=== PATIENT | female | born 1990 | race Hispanic/Latino ===

== ENCOUNTER 2016-12-07 12:47 | Outpatient (CLI) | payer MEDICAID ==
[2016-12-07 13:24] LABS: Hemoglobin 13.2 gm/dl (10.1-14.3); Mean Corpuscular HGB Conc 33 % (30-34); Mean Corpuscular Hemoglobin 31 pg (28-32); Mean Corpuscular Volume 93 fl (79-97); Platelet Count 230 K/mm3 (140-440); Red Blood Count 4.29 M/mm3 (3.65-5.03); Red Cell Distribution Width 12.4 % (13.2-15.2); White Blood Count 6.9 K/mm3 (4.5-11.0)
[2016-12-07 13:42] LABS: Alanine Aminotransferase 12 units/L (7-56); Albumin 4.4 g/dL (3.9-5); Albumin/Globulin Ratio 1.6 %; Alkaline Phosphatase 83 units/L (35-129); Anion Gap 19 mmol/L; Blood Urea Nitrogen 14 mg/dL (7-17); Calcium 9.2 mg/dL (8.4-10.2); Carbon Dioxide 24 mmol/L (22-30); Chloride 102.2 mmol/L (98-107); Glucose 93 mg/dL (65-100); Sodium 141 mmol/L (137-145); Total Protein 7.2 g/dL (6.3-8.2)
[2016-12-09 06:54] LABS: Vitamin D, 25-OH, Total 47 ng/mL (30-100)
== END 2016-12-07 12:48 | disposition home or self-care (01) ==
LOC: LAB 12:47
PROVIDERS: ATTEND Clinical Nurse Specialist Psychiatric/Mental Health
DX: F31.63 Bipolar disorder, current episode mixed, severe, without psychotic features (principal)
CPT/HCPCS: 36415; 80053; 80178; 82306; 84443; 85027

== ENCOUNTER 2017-01-23 15:10 | Emergency (ER) | payer MEDICAID ==
[2017-01-23] MEDS ORDERED: BENADRYL ONE (15:27)
[2017-01-23] MEDS ORDERED: HALDOL ONE (15:28)
[2017-01-23] MEDS ORDERED: ATIVAN ONE (15:28)
[2017-01-23] MEDS ORDERED: ATIVAN IM ONE (15:41)
[2017-01-23] MEDS ORDERED: BENADRYL IM ONE (15:42)
[2017-01-23] MEDS ORDERED: HALDOL IM ONE (15:43)
[2017-01-23 17:05] LABS: Basophils % (Auto) 0.4 % (0.0-1.8); Eosinophils % (Auto) 2.8 % (0.0-4.3); Hematocrit 41.2 % (30.3-42.9); Hemoglobin 13.8 gm/dl (10.1-14.3); Mean Corpuscular HGB Conc 34 % (30-34); Mean Corpuscular Hemoglobin 31 pg (28-32); Mean Corpuscular Volume 92 fl (79-97); Platelet Count 252 K/mm3 (140-440); Red Blood Count 4.47 M/mm3 (3.65-5.03); Red Cell Distribution Width 12.2 % (13.2-15.2)
--- NOTE | 2017-01-23 17:07 | Emergency Department Report ---
HPI - General Chief Complaint: Psych Time Seen by Provider: 01/23/17 16:17 - HPI HPI: This is a 26-year-old female presents to the emergency department via [employer] [employer] after the patient allegedly was making suicidal threats while at home. The patient denies this however and says that she was minding her business when the police kicked down her door, "told me I was a 1013and brought me to the hospital". The patient has a history of bipolar disorder admits to medication noncompliance with Ativan, Trileptal, lithium and a fourth medication. She says that she has not taken them in 4 days because "I did not feel like it." She does admit to history of suicidal ideations and attempts and previous cutting of herself. She lasted is about 3 months ago. When asked what caused her to want to harm herself she says "everything." When the patient got to the emergency department she was attempting to bite and hit ED staff. ED Past Medical Hx - Past Medical History Hx Hypertension: No Hx Congestive Heart Failure: No Hx Diabetes: No Hx Deep Vein Thrombosis: No Hx Renal Disease: No Hx Sickle Cell Disease: No Hx Seizures: No Hx Asthma: No Hx COPD: No Hx HIV: No - Social History Smoking Status: Current Every Day Smoker - Medications Home Medications: Home Medications Medication Instructions Recorded Confirmed Last Taken Type LORazepam [Ativan] 0.5 mg PO TID 01/23/17 01/23/17 Unknown History [place] Carbonate 300 mg PO BID 01/23/17 01/23/17 Unknown History traZODone [Desyrel] 100 mg PO DAILY 01/23/17 01/23/17 Unknown History ED Review of Systems ROS: Stated complaint: MH EVAL Other details as noted in HPI Comment: All other systems reviewed and negative Constitutional: denies: chills, fever Eyes: denies: eye pain, eye discharge, vision change ENT: denies: ear pain, throat pain Respiratory: denies: cough, shortness of breath, wheezing Cardiovascular: denies: chest pain, palpitations Gastrointestinal: denies: abdominal pain, nausea, diarrhea Genitourinary: denies: urgency, dysuria, discharge Musculoskeletal: denies: back pain, joint swelling, arthralgia Skin: denies: rash, lesions Neurological: denies: headache, weakness, paresthesias Psychiatric: depression. denies: auditory hallucinations, visual hallucinations Physical Exam - Physical Exam Physical Exam: GENERAL: The patient is well-developed well-nourished. HEENT: Normocephalic. Atraumatic. Extraocular motions are intact. Patient has moist mucous membranes. Pupils equal reactive to light bilaterally. NECK: Supple. Trachea is midline. CHEST/LUNGS: Clear to auscultation. There is no respiratory distress noted. HEART/CARDIOVASCULAR: Regular. There is no tachycardia. There is no gallop rub or murmur. ABDOMEN: Abdomen is soft, nontender. Patient has normal bowel sounds. There is no abdominal distention. SKIN: Skin is warm and dry. there are multiple abrasions to the bilateral forearms, some of which appear acute. NEURO: The patient is awake, alert, and oriented. The patient is cooperative. The patient has no focal neurologic deficits. The patient has normal speech. MUSCULOSKELETAL: There is no tenderness or deformity. There is no limitation range of motion. There is no evidence of acute injury. ED Medical Decision Making - Lab Data Result diagrams: 01/23/17 16:40 01/23/17 16:40 - Medical Decision Making 26-year-old female presents to the emergency department via PD. The story is inconsistent but the patient says she was minding her business and the police busted down her door. However there is some mention through the triage notes and what appears to be from the police that the patient had been making suicidal threats. She does present with some abrasions and/or self-inflicted wounds to the forearms, some of which appear acute, despite the fact that the patient says that they are at least 3 months old. She does currently have a depressed demeanor. However the patient presented very combative, trying to kick and bite and hit ED staff. She did get some chemical sedation from the prior ED attending but the patient was still awake and alert during my history and physical. Her vital signs stable throughout her ED course. There is no elevated blood alcohol level but the patient has polysubstance abuse with positive urine drug screen for methadone, amphetamine, benzodiazepam and marijuana. The patient does appear to be a candidate to be made a 1013 secondary to her alleged suicidal ideations, her visible self-harm and uncontrolled psychiatric behavior. The patient appears medically clear for psychiatric placement. Crisis therapist has seen the patient and will assist - Differential Diagnosis bipolar disorder, schizophrenia, schizoaffective, depression, polysubstance Critical Care Time: No Critical care attestation.: If time is entered above; I have spent that time in minutes in the direct care of this critically ill patient, excluding procedure time. ED Disposition Clinical Impression: Polysubstance abuse, Suicidal ideations Depression Qualifiers: Depression Type: unspecified Qualified Code(s): F32.9 - Major depressive disorder, single episode, unspecified Disposition: DC/TX-65 PSY HOSP/PSY UNIT Is pt being admited?: No Condition: Stable Referrals: PRIMARY CARE, [Primary Care Provider] - 3-5 Days Time of Disposition: 18:38
[2017-01-23 17:16] LABS: Anion Gap 17 mmol/L; Blood Urea Nitrogen 18 mg/dL (7-17); Calcium 9.4 mg/dL (8.4-10.2); Carbon Dioxide 25 mmol/L (22-30); Chloride 102.4 mmol/L (98-107); Glucose 80 mg/dL (65-100); Potassium 3.8 mmol/L (3.6-5.0); Sodium 141 mmol/L (137-145)
[2017-01-23 17:32] LABS: Urine Drugs of Abuse Note Disclamer
[2017-01-23 17:48] LABS: Bilirubin,Urine NEG (Negative); Blood,Urine NEG (Negative); Ketones,Urine NEG (Negative); Leukocyte Esterase,Urine SM (Negative); Mucus,Urine 3+ /HPF; Nitrite,Urine NEG (Negative)
[2017-01-24 22:45] VITALS: BP 125/78
== END 2017-01-25 00:17 ==
LOC: EEVIPCON 15:10 → ED 15:10
DX: F32.9 Major depressive disorder, single episode, unspecified (principal); F19.10 Other psychoactive substance abuse, uncomplicated; F17.200 Nicotine dependence, unspecified, uncomplicated
CPT/HCPCS: 36415; 80048; 80307; 81001; 84703; 85025; 96372; 99285; G0480; J1200; J1630; J2060; 80320

== ENCOUNTER 2018-05-14 10:50 | Emergency (ER) | payer MEDICAID ==
[2018-05-14 12:19] LABS: Bacteria,Urine 1+ /HPF (Negative); Bilirubin,Urine NEG (Negative); Blood,Urine NEG (Negative); Color,Urine Yellow (Yellow); Mucus,Urine FEW /HPF; Protein,Urine <15 mg/dL mg/dL (Negative); Urobilinogen,Urine < 2.0 mg/dL (<2.0)
[2018-05-14] MEDS ORDERED: TYLENOL PO ONE (13:04)
[2018-05-14 13:10] VITALS: BP 106/57
[2018-05-14 13:38] LABS: Basophils % (Auto) 0.1 % (0.0-1.8); Eosinophils # (Auto) 0.2 K/mm3 (0.0-0.4); Eosinophils % (Auto) 1.8 % (0.0-4.3); Hematocrit 36.8 % (30.3-42.9); Hemoglobin 12.9 gm/dl (10.1-14.3); Lymphocytes # (Auto) 2.1 K/mm3 (1.2-5.4); Lymphocytes % (Auto) 23.2 % (13.4-35.0); Mean Corpuscular HGB Conc 35 % (30-34); Mean Corpuscular Hemoglobin 32 pg (28-32); Mean Corpuscular Volume 91 fl (79-97); Monocytes # (Auto) 0.4 K/mm3 (0.0-0.8); Monocytes % (Auto) 4.9 % (0.0-7.3); Platelet Count 246 K/mm3 (140-440); Red Blood Count 4.06 M/mm3 (3.65-5.03)
[2018-05-14 14:05] LABS: BUN/Creatinine Ratio 14; Blood Urea Nitrogen 7 mg/dL (7-17); Calcium 9.3 mg/dL (8.4-10.2); Hemolysis Index 21
--- NOTE | 2018-05-14 14:35 | Emergency Department Report ---
ED HPI - General Chief complaint: Abdominal Pain Stated complaint: 9WKS /STOMACH PAIN Time Seen by Provider: 05/14/18 12:59 Source: patient Mode of arrival: Ambulatory Limitations: No Limitations - History of Present Illness Initial comments: This is a 28-year-old female nontoxic, well nourished in appearance, no acute signs of distress presents to the ED with c/o of pelvic pain x1 day. Patient denies any vaginal bleeding. Patient denies any upper abdominal. Patient denies any vaginal discharge or foul odor. Patient stated she is about 9 weeks . Patient denies any nausea, vomiting, chest pain, shortness of breathe, fever, chills, headache, stiff neck, numbness, tingling. Patient denies any urinary symptoms. Patient stated she does she an [employer] and had a normal US last week. MD Complaint: other (pelvic pain) -: days(s) (1) Location: pelvis Radiation: none Severity: mild Severity scale (0 -10): 3 Quality: cramping, aching Consistency: intermittent Improves with: none Worsens with: none Associated symptoms: denies: nausea/vomiting, vaginal bleeding, vaginal discharge, abdominal pain, dysuria, headache, vision changes, malaise, dysparuenia, rash, seizure, shortness of breath, syncope, weakness Vaginal bleeding: none :: Yes Number of weeks : 9 Pre- care: followed by OB - Related Data Home Medications Medication Instructions Recorded Confirmed Last Taken LORazepam [Ativan] 0.5 mg PO TID 01/23/17 01/23/17 Unknown [place] Carbonate 300 mg PO BID 01/23/17 01/23/17 Unknown traZODone [Desyrel] 100 mg PO DAILY 01/23/17 01/23/17 Unknown Allergies Allergy/AdvReac Type Severity Reaction Status Date / Time iodine Allergy Unknown Verified 05/14/18 11:13 hexachlorophene AdvReac Intermediate Unknown Verified 05/14/18 11:13 [From Septisol] latex AdvReac Intermediate Rash Verified 05/14/18 11:13 povidone-iodine AdvReac Intermediate Unknown Verified 05/14/18 11:13 [From Septisol] ED Review of Systems ROS: Stated complaint: 9WKS /STOMACH PAIN Other details as noted in HPI Constitutional: denies: chills, fever Eyes: denies: eye pain, eye discharge, vision change ENT: denies: ear pain, throat pain Respiratory: denies: cough, shortness of breath, wheezing Cardiovascular: denies: chest pain, palpitations Endocrine: no symptoms reported Gastrointestinal: other (pelvic pain). denies: abdominal pain, nausea, diarrhea Genitourinary: denies: urgency, dysuria, discharge Musculoskeletal: denies: back pain, joint swelling, arthralgia Skin: denies: rash, lesions Neurological: denies: headache, weakness, paresthesias Psychiatric: denies: anxiety, depression Hematological/Lymphatic: denies: easy bleeding, easy bruising ED Past Medical Hx - Past Medical History Hx Hypertension: No Hx Congestive Heart Failure: No Hx Diabetes: No Hx Deep Vein Thrombosis: No Hx Renal Disease: No Hx Sickle Cell Disease: No Hx Seizures: No Hx Asthma: No Hx COPD: No Hx HIV: No - Social History Smoking Status: Current Every Day Smoker Substance Use Type: None - Medications Home Medications: Home Medications Medication Instructions Recorded Confirmed Last Taken Type LORazepam [Ativan] 0.5 mg PO TID 01/23/17 01/23/17 Unknown History [place] Carbonate 300 mg PO BID 01/23/17 01/23/17 Unknown History traZODone [Desyrel] 100 mg PO DAILY 01/23/17 01/23/17 Unknown History ED Physical Exam - General Limitations: No Limitations General appearance: alert, in no apparent distress - Head Head exam: Present: atraumatic, normocephalic - Eye Eye exam: Present: normal appearance Pupils: Present: normal accommodation - ENT ENT exam: Present: normal exam, mucous membranes moist - Neck Neck exam: Present: normal inspection, full ROM. Absent: tenderness, meningismus - Respiratory Respiratory exam: Present: normal lung sounds bilaterally. Absent: respiratory distress, wheezes, rales, rhonchi, stridor, chest wall tenderness, accessory muscle use, decreased breath sounds, prolonged expiratory - Cardiovascular Cardiovascular Exam: Present: regular rate, normal rhythm, normal heart sounds. Absent: bradycardia, tachycardia, irregular rhythm, systolic murmur, diastolic murmur, rubs, gallop - GI/Abdominal GI/Abdominal exam: Present: soft, normal bowel sounds. Absent: distended, tenderness, guarding, rebound, rigid, diminished bowel sounds, hyperactive bowel sounds, hypoactive bowel sounds, mass, pulsatile mass - Expanded GI/Abdominal Exam Expanded GI/Abdominal exam: Absent: psoas sign, Verma's sign, Rovsing's sign, tenderness at Mcburney's Point, ascites - Rectal Rectal exam: Present: deferred - Extremities Exam Extremities exam: Present: normal inspection, full ROM - Back Exam Back exam: Present: normal inspection, full ROM. Absent: tenderness, CVA tenderness (R), CVA tenderness (L) - Neurological Exam Neurological exam: Present: alert, oriented X3 - Psychiatric Psychiatric exam: Present: normal affect, normal mood - Skin Skin exam: Present: warm, dry, intact, normal color. Absent: rash ED Course Vital Signs 05/14/18 05/14/18 05/14/18 11:13 12:55 13:10 Temperature 98.8 F Pulse Rate 67 68 Respiratory 16 17 16 Rate Blood Pressure 99/47 Blood Pressure 106/57 [Right] O2 Sat by Pulse 99 98 Oximetry - Reevaluation(s) Reevaluation #1: 05/14/18 14:32 Patient is speaking in full sentences wtih no signs of distress noted. ED Medical Decision Making - Lab Data Result diagrams: 05/14/18 13:20 05/14/18 13:20 - Medical Decision Making This is a 28-year-old female presents with pelvic pain during . Patient is stable and was examined by me. Normal abdominal exam. US OB ordered but patient left against medical advice. Patient was educated and instructed of my concerned related to ectopic and other acute abdomen. UA obtained. Quantative serum test obtained. Patient signed AMA form. At time of signing AMA form, the patient does not seem toxic or ill in appearance. No acute signs of distress noted. No further questions noted by the patient. Critical care attestation.: If time is entered above; I have spent that time in minutes in the direct care of this critically ill patient, excluding procedure time. ED Disposition Clinical Impression: Pelvic pain during Disposition: DC-07 LEFT AGAINST MED ADVICE Is pt being admited?: No Condition: Stable Instructions: Abdominal Pain (ED) Referrals: PRIMARY CARE, [Primary Care Provider] - 3-5 Days
== END 2018-05-14 14:10 | disposition left against medical advice (07) ==
LOC: ED 10:50
DX: O26.891 Other specified pregnancy related conditions, first trimester (principal); R10.2 Pelvic and perineal pain; O99.331 Smoking (tobacco) complicating pregnancy, first trimester; Z3A.09 9 weeks gestation of pregnancy; Z91.018 Allergy to other foods; Z91.040 Latex allergy status
CPT/HCPCS: 36415; 80048; 81001; 84702; 85025; 99283

== ENCOUNTER 2018-09-11 10:15 | Outpatient (CLI) | payer MEDICAID ==
[2018-09-11 10:44] VITALS: BP 99/55
--- NOTE | 2018-09-11 13:28 | Ultrasound Report ---
ULTRASOUND OB LIMITED History: well being Technique: Transabdominal ultrasound with Doppler interrogation. Gestation: Single Position: Cephalic Amniotic Fluid: Normal WES = 13.1 cm Heart Rate: 156 BPM
== END 2018-09-11 12:10 | disposition home or self-care (01) ==
LOC: TRG 10:15
PROVIDERS: ATTEND Obstetrics & Gynecology
DX: O47.02 False labor before 37 completed weeks of gestation, second trimester (principal); Z3A.26 26 weeks gestation of pregnancy
CPT/HCPCS: 59025; 76815

== ENCOUNTER 2018-10-11 08:09 | Outpatient (CLI) | payer MEDICAID ==
[2018-10-11] MEDS ORDERED: LACTATED RINGERS 1,000 ML IV ONE (08:38)
[2018-10-11 08:53] VITALS: BP 95/53
[2018-10-11 09:05] LABS: Bilirubin,Urine NEG (Negative); Blood,Urine SM (Negative); Color,Urine Straw (Yellow); Protein,Urine <15 mg/dL mg/dL (Negative); Urobilinogen,Urine < 2.0 mg/dL (<2.0); WBC,Urine < 1.0 /HPF (0.0-6.0)
== END 2018-10-11 09:41 | disposition home or self-care (01) ==
LOC: TRG 08:09
PROVIDERS: ATTEND Obstetrics & Gynecology
DX: O47.03 False labor before 37 completed weeks of gestation, third trimester (principal); O99.513 Diseases of the respiratory system complicating pregnancy, third trimester; J45.909 Unspecified asthma, uncomplicated; Z3A.30 30 weeks gestation of pregnancy
CPT/HCPCS: 36415; 59025; 81001; 82731

== ENCOUNTER 2018-12-17 13:04 | Inpatient (IN) | payer MEDICAID ==
[2018-12-17] MEDS ORDERED: MINERAL OIL PO PRN (14:19)
[2018-12-17] MEDS ORDERED: SUBLIMAZE IV PRN (14:19)
[2018-12-17] MEDS ORDERED: BRETHINE IVP PRN (14:19)
[2018-12-17] MEDS ORDERED: BRETHINE SUB-Q PRN (14:19)
[2018-12-17] MEDS ORDERED: PITOCin/NS 30 UNIT/500ML 30 UNITS/500 ML BAG IV SCH (15:00)
[2018-12-17] MEDS ORDERED: XYLOCAINE 2% INFILTRATI ONE (15:00)
[2018-12-17] MEDS ORDERED: LACTATED RINGERS 1,000 ML IV SCH (15:00)
[2018-12-17] MEDS ORDERED: PITOCin/NS 20 UNIT/1000ML DRIP 20 UNITS/1,000 ML BAG IV SCH (15:00)
[2018-12-17 15:46] LABS: Hematocrit 30.1 % (30.3-42.9); Hemoglobin 10.2 gm/dl (10.1-14.3); Mean Corpuscular HGB Conc 34 % (30-34); Mean Corpuscular Volume 89 fl (79-97); Platelet Count 270 K/mm3 (140-440); Red Blood Count 3.38 M/mm3 (3.65-5.03); Red Cell Distribution Width 14.8 % (13.2-15.2)
[2018-12-17] MEDS ORDERED: NARCAN 2 MG/2 ML IV PRN (17:21)
--- NOTE | 2018-12-17 17:54 | History and Physical Report ---
History of Present Illness Date of examination: 12/17/18 Date of admission: 12/17/18 15:21 Chief complaint: MY WATER BROKE History of present illness: Pt presents with SROM and confirmed by charge nurse in triage on exam. Fluid noted to be clear and not odor and SROM at 12noon. Pt admitted for iol. EDC Confirmation: 12/18/2018 Gestational Age: 8 weeks Past History : 4 Term Births: 3 Premature Births: 0 Living Children: 3 Para: 3 Mult. Births: 0 Prev : 0 Aborta: 0 Elect. Ab: 0 Spont. Ab: 0 Ectopics: 0 # 1 Delivery date: 04/24/2011 Weeks Gestation: 41 Delivery type: Vaginal Anesthesia type: epidural Delivery location: [facility] Sex: female weight: 8.75 Comments: none # 2 Delivery date: 02/24/2013 Weeks Gestation: 39 6/7 Delivery type: Vaginal Hours of labor: 9 Anesthesia type: epidural Delivery location: [facility] Infant Sex: male weight: 3515 Comments: none # 3 Delivery date: 2014 Weeks Gestation: term Delivery type: Anesthesia type: epidural Delivery location: [facility] Sex: Male weight: 7-8 Comments: IOL Past Medical History: Reviewed history from 09/10/2010 and no changes required: Asthma Bipolar Disease no meds Past Surgical History: Reviewed history from 09/10/2010 and no changes required: Tonsillectomy Past Medical History Abnormal PAP: negative BLAINE Exposure: negative Infertility: negative Uterine Anomaly: negative Uterine Surgery (not C/S): negative Other Gynecologic Problems: negative Social Hx: Patient is Smoking History: Patient has never smoked. Infection History Hx of STD: none HIV Risk Eval: low risk Hepatitis B Risk Eval: low risk Personal hx. of genital herpes: no Partner hx. of genital herpes: no Rash, Viral, or Febrile illness since last LMP? no Varicella/Chicken Pox Status: Unknown TB Risk: no Genetic History Congenital Heart Defect: Mom: no Dad: no Martha Disease: Mom: no Dad: no Thalassemia Mom: no Dad: no Neural Tube Defect Mom: no Dad: no Down's Syndrome Mom: no Dad: no Weston-Sachs Mom: no Dad: no Sickle Cell Disease/Trait Mom: no Dad: no Hemophilia Mom: no Dad: no Muscular Dystrophy Mom: no Dad: no Cystic Fibrosis Mom: no Dad: no Castro Chorea Mom: no Dad: no Mental Retardation Mom: no Dad: no Fragile X Mom: no Dad: no Other Genetic/Chromosomal Disorder Mom: no Dad: no Child w/other defect Mom: no Dad: no Enviromental Exposures Xray Exposure: no Medication, drug, or alcohol use since LMP: no Chemical/Other Exposure: no Exposure to Cat Liter: no Hx of Parvovirus (Fifth Disease): no Occupational Exposure to Children: none Active Medications (reviewed today): ZOFRAN ODT 8 MG ORAL TABLET DISINTEGRATING (ONDANSETRON) 1 po q12hrs prn PEPCID 40 MG ORAL TABLET (FAMOTIDINE) 1/2 tab BID ZANTAC 150 MG ORAL TABLET (RANITIDINE HCL) 1 tab PO qdaily PROMETHAZINE HCL 12.5 MG ORAL TABLET (PROMETHAZINE HCL) 1 po q 6 hrs prn nausea FERROUS SULFATE 325 (65 Fe) MG ORAL TABLET (FERROUS SULFATE) 1 po qd PROMETHAZINE HCL 25 MG ORAL TABLET (PROMETHAZINE HCL) 1 tab po q6hrs prn ONDANSETRON 8 MG ORAL TABLET DISINTEGRATING (ONDANSETRON) 1 po q12hrs prn Current Allergies (reviewed today): * IODINE (Critical) * CEFCIL (Critical) Past History Past Medical History: other (see hpi) Past Surgical History: other (see hpi) [employer] History: other (see hpi) Family/Genetic History: other (see hpi) Social history: no significant social history, (currently separtated from ), other (see hpi) - Obstetrical History Expected Date of Delivery: 12/18/18 Actual Gestation: 39 Week(s) 6 Day(s) : 4 Para: 3 Number of Living Children: 3 Medications and Allergies Allergies Allergy/AdvReac Type Severity Reaction Status Date / Time iodine Allergy Unknown Verified 09/11/18 10:48 hexachlorophene AdvReac Intermediate Unknown Verified 09/11/18 10:48 [From Septisol] latex AdvReac Intermediate Rash Verified 09/11/18 10:48 povidone-iodine AdvReac Intermediate Unknown Verified 09/11/18 10:48 [From Septisol] Home Medications Medication Instructions Recorded Confirmed Last Taken Type Ipratropium [place] 1 inhalation INHALATION TID MDD prn 09/11/18 12/17/18 09/10/18 07:00 History Active Meds: Active Medications Ephedrine Sulfate (Ephedrine Sulfate) 10 mg IV Q2M PRN PRN Reason: Hypotension Ephedrine Sulfate (Ephedrine Sulfate) 10 mg IV Q2M PRN PRN Reason: Hypotension Fentanyl (Sublimaze) 100 mcg IV Q2H PRN PRN Reason: Labor Pain Last Admin: 12/17/18 16:11 Dose: 100 mcg Documented by: Oxytocin/Sodium Chloride (Pitocin/Ns 20 Unit/1000ml Drip) 20 units in 1,000 mls @ 125 mls/hr IV DIRECT MAY Oxytocin/Sodium Chloride (Pitocin/Ns 30 Unit/500ml) 30 units in 500 mls @ 4 mls/min IV TITR MAY; Protocol Last Admin: 12/17/18 16:05 Dose: 4 ml/hr, 0.07 mls/min Documented by: Lactated Ringer's (Lactated Ringers) 1,000 mls @ 125 mls/hr IV DIRECT MAY Last Admin: 12/17/18 16:04 Dose: 125 mls/hr Documented by: Fentanyl/Bupivacaine/Sodium Chlor (Fentanyl-Bupiv 2 Mcg/Ml-0.125%) 200 mcg in 1 00 mls @ 12 mls/hr EPIDURAL TITR MAY; Protocol Mineral Oil (Mineral Oil) 30 ml PO QHS PRN PRN Reason: Constipation Naloxone HCl (Narcan 2 Mg/2 Ml) 0.2 mg IV Q5M PRN PRN Reason: Respiratory sedation Terbutaline Sulfate (Brethine) 0.25 mg SUB-Q ONCE PRN PRN Reason: Hyperstimulation/Hypertonicity Terbutaline Sulfate (Brethine) 0.25 mg IVP ONCE PRN PRN Reason: Hyperstimulation/Hypertonicity - Vital Signs Vital signs: Vital Signs Pulse Pulse Ox 92 H 96 12/17/18 13:27 12/17/18 13:27 Temp Pulse Resp BP Pulse Ox 97.9 F 76 16 99/59 98 12/17/18 15:24 12/17/18 17:47 12/17/18 15:24 12/17/18 17:47 12/17/18 17:46 Results Result Diagrams: 12/17/18 15:20 Abnormal lab results 12/17/18 Range/Units 15:20 WBC 15.0 H (4.5-11.0) K/mm3 RBC 3.38 L (3.65-5.03) M/mm3 Hct 30.1 L (30.3-42.9) % All other labs normal. Assessment and Plan - Patient Problems (1) 39 weeks gestation of Current Visit: Yes Status: Acute (2) SROM (spontaneous rupture of membranes) Current Visit: Yes Status: Acute Plan to address problem: -pitocin started -anticipate -epidural when and if desired
[2018-12-17] MEDS ORDERED: fentaNYL-BUPIV 2 MCG/ML-0.125% 200 MCG/100 ML BAG EPIDURAL SCH (18:00)
[2018-12-17] MEDS ORDERED: ZOFRAN IV PRN (18:53)
[2018-12-17] MEDS ORDERED: LANSINOH TP PRN (21:25)
[2018-12-17] MEDS ORDERED: BENADRYL PO PRN (21:25)
[2018-12-17] MEDS ORDERED: DULCOLAX PR PRN (21:25)
[2018-12-17] MEDS ORDERED: MILK OF MAGNESIA PO PRN (21:25)
[2018-12-17] MEDS ORDERED: TUCKS PAD TP PRN (21:25)
--- NOTE | 2018-12-17 21:32 | Procedure Note ---
OB Delivery Note - Delivery Date of Delivery: 12/17/18 Surgeon: FRENCH MORALES Estimated blood loss: 100cc - Vaginal Delivery presentation: vertex Delivery position: OA Intrapartum events: none Delivery induction: oxytocin Delivery augmentation: pitocin Delivery monitor: external FHT, external uterine Route of delivery: Delivery placenta: spontaneous (intact) Delivery cord: nuchal cord (times one easily reduced), 3 umbilical vessels Episiotomy: none Delivery laceration: 1st degree (periurethral hemostatic) Anesthesia: epidural Delivery comments: Delivery as above. With 1-2 pushes pt delivered a live born female infant. Nuchat cord times one noted and reduced. Ant shoulder and rest of delivered without any complications. There was no shoulder dystocia. Infant was placed on maternal abdomen. Cord palpated for pulsations and once completed was clamped x 2 and cut x1 by FOB. Cord blood was collected. Placenta delivered spontaneously intact. Mother and stable in LDR. - Infant A at 1 minute: 8 at 5 minutes: 9 Infant Gender: Female (7lbs 10oz)
[2018-12-17] MEDS ORDERED: ERYTHROMYCIN OPHTH OINT OU ONE (21:35)
[2018-12-17] MEDS ORDERED: VITAMIN K *NICU IM ONE (21:35)
[2018-12-17] MEDS ORDERED: IBUPROFEN PO SCH (22:00)
[2018-12-17] MEDS ORDERED: SODIUM CHLORIDE FLUSH SYRINGE 10 ML IV PRN (22:00)
[2018-12-18] MEDS: IBUPROFEN PO SCH ×4 (00:25→18:22)
[2018-12-18] MEDS: TYLENOL PO PRN ×2 (03:57→10:10)
[2018-12-18] MEDS: PRENATAL VITAMIN PO SCH (10:10)
--- NOTE | 2018-12-18 10:37 | Progress Note ---
Assessment and Plan - Patient Problems (1) Spontaneous vaginal delivery Current Visit: No Status: Acute Plan to address problem: day #1. Patient without nausea vomiting. Patient tolerating diet well Patient without fever. is doing well. Will continue routine care. Patient's hematocrit is pending. Patient is breast- feeding and desires ParaGard . Subjective - Subjective Date of service: 12/18/18 Patient reports: appetite normal, voiding normally, pain well controlled, flatus, ambulating normally : doing well Objective - Vital Signs Latest vital signs: Vital Signs Temp Pulse Resp BP BP Pulse Ox 12/18/18 08:38 61 99/56 99 12/18/18 04:00 98.4 F 88 16 117/76 12/17/18 23:30 98.7 F 77 18 113/78 12/17/18 22:45 71 94/57 12/17/18 22:38 64 104/59 12/17/18 22:30 98.6 F 12/17/18 22:29 65 103/56 12/17/18 22:14 68 98/55 12/17/18 22:00 82 93/51 12/17/18 21:45 69 94/53 12/17/18 21:30 76 98/53 12/17/18 21:18 73 103/54 12/17/18 21:16 71 105/53 12/17/18 21:07 101 H 74 L 12/17/18 21:04 38 L 84 12/17/18 21:02 86 100 12/17/18 20:57 85 99 12/17/18 20:52 62 99 12/17/18 20:50 64 104/56 12/17/18 20:47 76 98 12/17/18 20:42 73 99 12/17/18 20:37 65 98 12/17/18 20:32 62 97 12/17/18 20:27 58 L 96 12/17/18 20:22 58 L 99 12/17/18 20:20 66 100/58 12/17/18 20:17 71 99 12/17/18 20:12 64 100 12/17/18 20:07 65 98 12/17/18 20:02 66 98 12/17/18 19:57 71 98 12/17/18 19:52 71 99 12/17/18 19:50 68 102/59 05//19 19:47 69 99 05//19 19:42 66 100 05//19 19:37 80 97 05//19 19:32 76 99 05//19 19:27 85 99 05//19 19:22 68 100 05//19 19:19 69 107/59 05//19 19:17 83 99 05//19 19:12 81 100 05//19 19:07 75 99 05// 19:02 66 100 05//19 18:57 72 100 05//19 18:52 70 100 05// 18:48 80 101/57 05// 18:47 82 103/56 100 05// 18:45 65 97/52 05// 18:43 67 100/58 05//19 18:42 66 100 05//19 18:41 80 91/50 05// 18:39 67 95/51 05// 18:37 71 100/58 100 05/ 18:35 81 103/63 05//19 18:33 77 98/53 05//19 18:32 84 97 05/ 18:31 68 99/54 05//19 18:29 63 100/59 05//19 18:27 85 101/58 99 05//19 18:25 90 92/55 05//19 18:23 71 97/53 05//19 18:22 71 99 05//19 18:21 78 90/50 05//19 18:19 68 102/58 05//19 18:17 69 101/56 05//19 18:16 68 99 05//19 18:15 77 104/59 05//19 18:13 81 100/57 05//19 18:11 66 105/55 99 05//19 18:09 74 103/61 05//19 18:07 81 97/54 05//19 18:06 81 99 05/19 18:05 74 104/57 05//19 18:03 67 103/55 05//19 18:01 68 105/58 100 05//19 17:59 71 106/61 05/26/19 17:57 71 107/63 12/17/18 17:56 68 99 12/17/18 17:55 72 103/61 12/17/18 17:53 75 105/61 12/17/18 17:51 63 102/60 100 12/17/18 17:49 78 104/59 12/17/18 17:47 76 99/59 12/17/18 17:46 77 98 12/17/18 17:45 77 104/61 12/17/18 17:43 68 101/59 12/17/18 17:41 72 102/61 99 12/17/18 17:39 66 106/66 12/17/18 17:37 69 100/61 12/17/18 17:36 71 100 12/17/18 17:35 68 98/54 12/17/18 17:33 81 111/57 12/17/18 17:31 82 99 12/17/18 17:26 61 97 12/17/18 17:21 63 97 12/17/18 17:16 69 98 12/17/18 17:11 67 97 12/17/18 17:06 66 96 12/17/18 17:01 79 95 12/17/18 16:56 70 96 12/17/18 16:51 74 96 12/17/18 16:46 73 97 12/17/18 16:41 72 97 12/17/18 16:36 77 96 12/17/18 16:31 78 97 12/17/18 16:26 77 97 12/17/18 15:24 97.9 F 16 12/17/18 13:47 92 H 96 12/17/18 13:42 95 H 95 12/17/18 13:37 83 96 12/17/18 13:33 98.6 F 20 12/17/18 13:32 89 96 12/17/18 13:30 94 H 111/57 12/17/18 13:27 92 H 96 Intake and Output 12/17/18 12/18/18 12/18/18 22:59 06:59 14:59 Intake Total 9.66 300 Output Total 500 800 Balance -490.34 -500 Intake: IV 9.66 PITOCin/NS 30 UNIT/500ML 9.66 30 units In 500 ml @ 4 mls/min IV TITR MAY Rx#: [id number] Intake, Free Water 300 Output: Urine 500 800 Indwelling Catheter 500 Void 800 Other: Total, Output Amount 500 500 # Voids Indwelling Catheter 1 Estimated Blood Loss 100 - Exam Breasts: Present: deferred Cardiovascular: Present: Regular rate Abdomen: Present: normal appearance, soft Uterus: Present: fundal height at umbilicus Extremities: Present: edema - Labs Labs: Abnormal lab results 12/17/18 Range/Units 15:20 WBC 15.0 H (4.5-11.0) K/mm3 RBC 3.38 L (3.65-5.03) M/mm3 Hct 30.1 L (30.3-42.9) %
[2018-12-18 11:04] LABS: Hematocrit 28.6 % (30.3-42.9); Hemoglobin 9.6 gm/dl (10.1-14.3)
[2018-12-19] MEDS: IBUPROFEN PO SCH ×2 (00:10→05:52)
--- NOTE | 2018-12-19 08:03 | Discharge Summary ---
Providers - Providers Date of Admission: 12/17/18 15:21 Date of discharge: 12/19/18 (desires d/c home today) Attending physician: FRENCH MORALES Primary care physician: FRENCH MORALES Hospitalization Reason for admission: Labor and delivery Condition: Good Pertinent studies: postop H&H 9.6/28.6 - asymptomatic, anemia from acute blood loss Procedures: Hospital course: uncomplicated and course Disposition: - TO HOME OR SELFCARE - Discharge Diagnoses (1) Spontaneous vaginal delivery Status: Acute Core Measure Documentation - Palliative Care Palliative Care/ Comfort Measures: Not Applicable - Core Measures Any of the following diagnoses?: none Exam - Constitutional Vitals: Temp Pulse Resp BP Pulse Ox 97.3 F L 58 L 18 102/54 98 12/19/18 01:22 12/19/18 01:20 12/19/18 01:22 12/19/18 01:22 12/19/18 01:20 General appearance: Present: no acute distress, well-nourished - EENT Eyes: Present: PERRL ENT: hearing intact, clear oral mucosa - Neck Neck: Present: supple, normal ROM - Respiratory Respiratory effort: normal Respiratory: bilateral: CTA - Cardiovascular Heart Sounds: Present: S1 & S2. Absent: rub, click - Extremities Extremities: pulses symmetrical, No edema Peripheral Pulses: within normal limits - Abdominal General gastrointestinal: Present: soft, non-tender, non-distended, normal bowel sounds Female genitourinary: Present: normal - Integumentary Integumentary: Present: clear, warm, dry - Musculoskeletal Musculoskeletal: gait normal, strength equal bilaterally - Psychiatric Psychiatric: appropriate mood/affect, intact judgment & insight - Neurologic Neurologic: CNII-XII intact, moves all extremities - Additional findings Additional findings: fundus firm, lochia scant, breast and bottle feeding, VSSAF Plan Activity: no restrictions Diet: regular Follow up with: FRENCH MORALES MD [Primary Care Provider] - 01/19/19 (Congratulations!! please call [phone] to schedule your appointment in 4 weeks. Call for any questions or concerns.)
[2018-12-19] MEDS: PRENATAL VITAMIN PO SCH (09:09)
[2018-12-19 11:13] VITALS: BP 103/59
== END 2018-12-19 11:34 | disposition home or self-care (01) | DRG 775 ==
LOC: TRG 13:04 → LD 15:21 → OB 23:15
PROVIDERS: ADMIT Obstetrics & Gynecology; ATTEND Obstetrics & Gynecology
PROC: 10E0XZZ Delivery of Products of Conception, External Approach (ICD-10-PCS; principal; 2018-12-17)
PROC: 3E0R3BZ Introduction of Anesthetic Agent into Spinal Canal, Percutaneous Approach (ICD-10-PCS; 2018-12-17)
PROC: 00HU33Z Insertion of Infusion Device into Spinal Canal, Percutaneous Approach (ICD-10-PCS; 2018-12-17)
PROC: 3E033VJ Introduction of Other Hormone into Peripheral Vein, Percutaneous Approach (ICD-10-PCS; 2018-12-17)
PROC: 3E0334Z Introduction of Serum, Toxoid and Vaccine into Peripheral Vein, Percutaneous Approach (ICD-10-PCS; 2018-12-18)
DX: O69.81X0 Labor and delivery complicated by cord around neck, without compression, not applicable or unspecified (principal); O99.52 Diseases of the respiratory system complicating childbirth; O70.0 First degree perineal laceration during delivery; O26.893 Other specified pregnancy related conditions, third trimester; J45.909 Unspecified asthma, uncomplicated; O99.344 Other mental disorders complicating childbirth; F31.9 Bipolar disorder, unspecified; D62 Acute posthemorrhagic anemia; O90.81 Anemia of the puerperium; Z37.0 Single live birth; Z3A.39 39 weeks gestation of pregnancy; Z90.89 Acquired absence of other organs; Z67.11 Type A blood, Rh negative; Z88.8 Allergy status to other drugs, medicaments and biological substances; Z91.041 Radiographic dye allergy status
CPT/HCPCS: 36415; 85014; 85018; 85027; 85461; 86592; 86850; 86870; 86900; 86901; 99406; G0378; A6250; J2405; J2590; J2790; J3010; J7120